=== PATIENT | female | born 1970 | race Caucasian/White ===

== ENCOUNTER 2016-12-15 16:34 | Inpatient (IN) | payer OTHER ==
[~2016-12-15 16:34] MED LIST: CYCLOBENZAPRINE10 M1 PO; HYDROCODON-ACE1 EA16 PO; NORCO 5-325 TA1 EACH PO; PRENATAL CAPLE1 EACH PO; XANAX0.25 M1 PO
[2016-12-15] MEDS ORDERED: IRON325 M3 PO (18:22)
[2016-12-15 18:26] LABS: PROTHROMBIN TIME 11.4 SECONDS (9.0-13.6)
[2016-12-15 18:35] LABS: ALB/GLOB RATIO 0.7 (0.8-2.0); ALBUMIN 3.2 g/dl (3.5-5.0); ALKALINE PHOSPHATASE 89 U/L (33-138); ALT/SGPT 36 U/L (12-78); ANION GAP 13 mmol/L (0-20); AST/SGOT 19 U/L (10-40); BILIRUBIN,TOTAL 0.3 mg/dl (0-1.5); BLOOD UREA NITROGEN 22 mg/dl (6-24); CALCIUM 8.5 mg/dl (8.5-10.5); CARBON DIOXIDE-VENOUS 25 mmol/L (22-32); CHLORIDE 105 mmol/l (96-110); CREATININE 0.62 mg/dl (0.50-1.10); GLUCOSE 126 mg/dL (70-110); POTASSIUM 3.5 mmol/L (3.7-5.1); SODIUM 139 mmol/L (135-145); eGFR VALUE FOR BLACK >90 mL/Min
[2016-12-15 19:01] LABS: BASO % 0.2 % (0-2); EOS % 1.7 % (0-7); EOSINOPHIL ABSOLUTE COUNT 0.1 tho/cmm (0.0-0.7); HCT-HEMATOCRIT 37.6 % (34.0-49.0); HGB-HEMOGLOBIN 12.5 gm/dl (12.0-15.5); LYMPH % 34.6 % (20-45); LYMPH ABSOLUTE COUNT 2.9 tho/cmm (0.8-4.5); MCH (MEAN CORPUSCULAR HGB) 27.2 pg (28.0-32.0); MCHC MEAN CORPUSCULAR HGB CONC 33.2 % (32.0-36.0); MCV (MEAN CELL VOLUME) 81.9 fl (82.0-96.0); MONOCYTE ABSOLUTE COUNT 0.4 tho/cmm (0.0-1.2); NEUTROPHIL ABSOLUTE COUNT 4.9 tho/cmm (1.6-8.0); NEUTROPHIL-AUTOMATED 4.9 tho/cmm (1.6-8.0); NEUTROPHILS % 58.5 % (40-80); RED BLOOD COUNT 4.59 mil/cmm (4.00-5.20); RED CELL DISTRIBUTION WIDTH 14.3 % (12.4-16.4); WHITE BLOOD COUNT 8.4 tho/cmm (4.0-10.0)
[2016-12-15 19:38] LABS: PLATELET COUNT 5 tho/cmm (150-450)
[2016-12-15] MEDS ORDERED: HYDROCODON-ACE1 EA16 PO (20:44)
[2016-12-16 05:25] LABS: BASO % 0.1 % (0-2); EOS % 0.1 % (0-7); HGB-HEMOGLOBIN 13.2 gm/dl (12.0-15.5); IMMATURE GRANULOCYTES ABSOLUTE 0.06 tho/cmm (0-0.03); IMMATURE GRANULOCYTES PERCENT 0.7 % (0-0.3); LYMPH % 16.7 % (20-45); LYMPH ABSOLUTE COUNT 1.4 tho/cmm (0.8-4.5); MCH (MEAN CORPUSCULAR HGB) 27.4 pg (28.0-32.0); MCHC MEAN CORPUSCULAR HGB CONC 33.8 % (32.0-36.0); MCV (MEAN CELL VOLUME) 81.1 fl (82.0-96.0); MONO % 1.5 % (0-12); MONOCYTE ABSOLUTE COUNT 0.1 tho/cmm (0.0-1.2); NEUTROPHIL ABSOLUTE COUNT 6.6 tho/cmm (1.6-8.0); NEUTROPHIL-AUTOMATED 6.6 tho/cmm (1.6-8.0); NEUTROPHILS % 80.9 % (40-80); RED BLOOD COUNT 4.81 mil/cmm (4.00-5.20); RED CELL DISTRIBUTION WIDTH 14.2 % (12.4-16.4); WHITE BLOOD COUNT 8.2 tho/cmm (4.0-10.0)
[2016-12-16 11:41] LABS: PLATELET COUNT <1 tho/cmm (150-450)
[2016-12-16 11:52] LABS: ALB/GLOB RATIO 0.7 (0.8-2.0); ALBUMIN 3.2 g/dl (3.5-5.0); ALKALINE PHOSPHATASE 89 U/L (33-138); ALT/SGPT 39 U/L (12-78); ANION GAP 15 mmol/L (0-20); AST/SGOT 16 U/L (10-40); BILIRUBIN,TOTAL 0.2 mg/dl (0-1.5); BLOOD UREA NITROGEN 16 mg/dl (6-24); CALCIUM 8.8 mg/dl (8.5-10.5); CARBON DIOXIDE-VENOUS 24 mmol/L (22-32); CHLORIDE 104 mmol/l (96-110); CREATININE 0.71 mg/dl (0.50-1.10); GLUCOSE 157 mg/dL (70-110); POTASSIUM 3.7 mmol/L (3.7-5.1); SODIUM 139 mmol/L (135-145); eGFR VALUE FOR BLACK >90 mL/Min
[2016-12-16 12:02] LABS: ESR-ERYTHROCYTE SED RATE 33 mm/hr (0-20)
[2016-12-17 06:21] LABS: BASO % 0.1 % (0-2); HCT-HEMATOCRIT 37.3 % (34.0-49.0); HGB-HEMOGLOBIN 12.7 gm/dl (12.0-15.5); IMMATURE GRANULOCYTES PERCENT 0.7 % (0-0.3); LYMPH % 11.3 % (20-45); LYMPH ABSOLUTE COUNT 1.7 tho/cmm (0.8-4.5); MCH (MEAN CORPUSCULAR HGB) 27.7 pg (28.0-32.0); MCV (MEAN CELL VOLUME) 81.3 fl (82.0-96.0); MONO % 2.3 % (0-12); MONOCYTE ABSOLUTE COUNT 0.4 tho/cmm (0.0-1.2); NEUTROPHILS % 85.6 % (40-80); RED BLOOD COUNT 4.59 mil/cmm (4.00-5.20); RED CELL DISTRIBUTION WIDTH 14.3 % (12.4-16.4)
[2016-12-17 06:40] LABS: WHITE BLOOD COUNT 15.2 tho/cmm (4.0-10.0)
[2016-12-17 06:41] LABS: PLATELET COUNT 5 tho/cmm (150-450)
[2016-12-18 05:28] LABS: BASO % 0.1 % (0-2); EOS % 0.1 % (0-7); HCT-HEMATOCRIT 33.3 % (34.0-49.0); HGB-HEMOGLOBIN 11.2 gm/dl (12.0-15.5); IMMATURE GRANULOCYTES PERCENT 0.7 % (0-0.3); LYMPH % 18.5 % (20-45); LYMPH ABSOLUTE COUNT 2.6 tho/cmm (0.8-4.5); MCH (MEAN CORPUSCULAR HGB) 27.5 pg (28.0-32.0); MCHC MEAN CORPUSCULAR HGB CONC 33.6 % (32.0-36.0); MCV (MEAN CELL VOLUME) 81.8 fl (82.0-96.0); MEAN PLATELET VOLUME 11.2 cmc (9.4-12.4); MONO % 5.2 % (0-12); MONOCYTE ABSOLUTE COUNT 0.7 tho/cmm (0.0-1.2); NEUTROPHIL ABSOLUTE COUNT 10.6 tho/cmm (1.6-8.0); NEUTROPHIL-AUTOMATED 10.6 tho/cmm (1.6-8.0); NEUTROPHILS % 75.4 % (40-80); RED BLOOD COUNT 4.07 mil/cmm (4.00-5.20); RED CELL DISTRIBUTION WIDTH 14.5 % (12.4-16.4)
[2016-12-18 05:31] LABS: PLATELET COUNT 34 tho/cmm (150-450)
[2016-12-18] MEDS ORDERED: AMOXICILLIN875 M1 PO (14:08)
[2016-12-18] MEDS ORDERED: DEXAMETHASONE4 M1 PO (14:09)
== END 2016-12-18 16:04 | DRG 813 ==
LOC: EDMED 16:34 → EMR2 21:15 → 5WF 21:30
PROVIDERS: Emergency Medicine; Internal Medicine; Internal Medicine Hematology & Oncology; ADMIT Hospitalist
PROC: 2Y41X5Z Packing of Nasal Region using Packing Material (ICD-10-PCS; principal; 2016-12-17)
DX: D69.3 Immune thrombocytopenic purpura (principal); F41.9 Anxiety disorder, unspecified; K06.8 Other specified disorders of gingiva and edentulous alveolar ridge; M54.9 Dorsalgia, unspecified; R04.0 Epistaxis; Z85.71 Personal history of Hodgkin lymphoma
CPT/HCPCS: C1751; J1100; J1200; J1568; Q9967